=== PATIENT | female | born 1970 | race Caucasian/White ===

== ENCOUNTER 2017-01-04 13:39 | Emergency (ER) | payer BC ==
[~2017-01-04] VITALS: Wt 78.0 kg
[2017-01-04] MEDS ORDERED: SOD CHLORIDE 0.9% 1,000 ML IV STA (14:06)
[2017-01-04 14:50] LABS: BASOPHILS % 0.5 % (0.0-2.0); EOSINOPHILS # 0.1 10^3/ul (0.0-0.5); EOSINOPHILS % 0.6 % (0.0-7.0); HEMATOCRIT 38.9 % (37.0-47.0); HEMOGLOBIN 12.5 g/dl (12.0-16.0); LYMPHOCYTES # 2.2 10^3/ul (0.8-2.9); LYMPHOCYTES % 27.6 % (15.0-51.0); MEAN CORPUSCULAR HEMOGLOBIN 29.1 pg (29.0-33.0); MEAN CORPUSCULAR HGB CONC 32.1 g/dl (32.0-37.0); MEAN CORPUSCULAR VOLUME 90.7 fl (82.0-101.0); MEAN PLATELET VOLUME 9.7 fl (7.4-10.4); MONOCYTE # 0.7 10^3/ul (0.3-0.9); MONOCYTES % 8.3 % (0.0-11.0); NEUTROPHIL # 5.1 10^3/ul (1.6-7.5); NEUTROPHILS % 62.8 % (39.0-77.0); PLATELET COUNT 382 10^3/UL (140-415); RED BLOOD COUNT 4.29 10^6/ul (4.20-5.40); RED CELL DISTRIBUTION WIDTH 13.8 % (11.5-14.5); WHITE BLOOD COUNT 8.1 10^3/ul (4.8-10.8)
--- NOTE | 2017-01-04 15:01 | RADRPT ---
PROCEDURE: XR Chest. CLINICAL INDICATION: Patient experiencing Syncope. TECHNIQUE: Single frontal view of the chest was obtained COMPARISON: None FINDINGS: The heart and mediastinum are within normal limits. The lungs are clear. There is no pleural effusion or pneumothorax. The osseous structures are unremarkable. IMPRESSION: 1. No acute cardiopulmonary disease. RPTAT:AAJJ Lambert Escoto Physician Date Time Electronically viewed and signed by Lambert Escoto Physician on 01/04/2017 15:01 QL/
[2017-01-04 15:06] LABS: INR 1.04; PROTIME 13.6 Sec (12.2-14.2); PT RATIO 1.1
[2017-01-04 15:07] LABS: PARTIAL THROMBOPLASTIN TIME 28.1 Sec (25.0-35.0)
[2017-01-04 15:09] LABS: ANION GAP 13 (8-16); BLOOD UREA NITROGEN 15 mg/dl (7-20); CALCIUM 9.5 mg/dl (8.4-10.2); CARBON DIOXIDE 29 mmol/L (21-31); CHLORIDE 102 mmol/L (97-110); CREATININE 0.86 mg/dl (0.44-1.00); GLUCOSE 113 mg/dl (70-220); POTASSIUM 3.7 mmol/L (3.5-5.1); SODIUM 140 mmol/L (135-144)
[2017-01-04 15:22] LABS: TROPONIN-I < 0.012 ng/ml (0.00-0.12)
[2017-01-04] MEDS ORDERED: IOHEXOL 100 ML ONE (15:53)
[2017-01-04] MEDS ORDERED: SOD CHLORIDE 0.9% 100 ML ONE (15:53)
--- NOTE | 2017-01-04 16:08 | RADRPT ---
PROCEDURE: CT Chest Angiogram with contrast. CLINICAL INDICATION: Shortness of breath TECHNIQUE: CT scan of the chest with contrast was performed on a multidetector high-resolution CT scanner. The patient was scanned following the uncomplicated intravenous administration of 100 cc o f Isovue 300 contrast. Coronal and sagittal reformatted images were obtained from the axial source images. Additional 3D volumetric renderings were created. Images were reviewed on a [facility] PACS workstation. The total exam CTDI equals 42/19mGy and the total exam DLP equals 675mGy-cm. One or more of the following dose reduction techniques were used: Automated exposure control, Adjustmen t of the mA and/or kV according to patient size, and/or use of iterative reconstruction technique. D ICOM images are available. COMPARISON: Correlation chest x-ray earlier today. FINDINGS: Technically adequate exam for the evaluation of the pulmonary arteries to the segmental level. No in traluminal filling defects are seen. Right middle lobe and lingula scarring. No acute consolidation or pulmonary mass identified. No mediastinal or hilar lymphadenopathy. No pleural or pericardial effusion. The visualized upper abdomen is grossly unremarkable. Mild degenerative changes to the thoracic spine are seen. IMPRESSION: No evidence of pulmonary embolus. RPTAT: AA .Anoop Hopkins MD, Date Time Electronically viewed and signed by .Anoop Hopkins MD, MD on 01/04/2017 16:07 .T/
--- NOTE | 2017-01-04 16:50 | ERD ---
ER Documentation Chief Complaint Chief Complaint NEAR SYNCOPE WHILE VISITING A FRIEND. CODE GREEN, NO TRAUMA NO NEURO DEF HPI This is a 46-year-old female was a code green. The patient was upstairs visiting a friend when she suddenly became slightly short of breath with pale and diaphoretic. Patient was dizzy and thought she is going to pass out so she went to the nurses station. There they checked her blood pressure and it was 80 /61. The patient was given some apple juice. After the application was given she felt much better and her symptoms resolved. Her fingerstick at that time was 94. She thinks this was done after the juice was given. The patient states she is under a lot of stress because her dog is in critical care at the [employer] office right now. She says she has no shortness of breath now no chest pain. The patient states that she has protein S deficiency. The patient states she was on an airplane yesterday for 3 hours but does not have any leg swelling or pain or tenderness. She says she is asymptomatic now. Patient says she had a very light breakfast today, but again, she has been very stressed out about her dog ROS All systems reviewed and are negative except as per history of present illness. PMhx/Soc Hx Miscellaneous Medical Probl: Yes (DEPRESSION) Hx Alcohol Use: Yes (OCCASIONAL ) Hx Substance Use: No Hx Tobacco Use: No Smoking Status: Never smoker FmHx Family History: No coronary disease Physical Exam Vitals Vital Signs Date Time Temp Pulse Resp B/P Pulse Ox O2 Delivery O2 Flow Rate FiO2 01/04/17 15:24 98.6 75 20 119/85 98 Room Air 01/04/17 13:48 97.9 78 21 108/68 98 Physical Exam Const: Well-developed, well-nourished Head: Atraumatic, normocephalic Eyes: Normal Conjunctiva, PERRLA, EOMI, normal sclera, no nystagmus ENT: Normal External Ears, Nose and Mouth, moist mucus membranes. Neck: Full range of motion. No meningismus, no lymphadenopathy. Resp: Clear to auscultation bilaterally, no wheezing, rhonchi, rales Cardio: Regular rate and rhythm, no murmurs, S1 S2 present Abd: Soft, non tender x 4, non distended. Normal bowel sounds, no guarding or rebound, no pulsitile abdominal masses or bruits Skin: No petechiae or rashes, no ecchymosis , no maculopapular rash Back: No midline or flank tenderness Ext: No cyanosis, or edema, FROM x 4, normal inspection, neurovascularly intact x 4 Neur: Awake and alert, STR 5/5 x 4, sensation intact x 4, no focal findings, cerebellum intact Psych: Normal Mood and Affect Result Diagram: 01/04/17 1435 01/04/17 1435 Results 24 hrs Laboratory Tests Test 01/04/17 14:35 White Blood Count 8.110^3/ul Red Blood Count 4.2910^6/ul Hemoglobin 12.5g/dl Hematocrit 38.9% Mean Corpuscular Volume 90.7fl Mean Corpuscular Hemoglobin 29.1pg Mean Corpuscular Hemoglobin Concent 32.1g/dl Red Cell Distribution Width 13.8% Platelet Count 34696^3/UL Mean Platelet Volume 9.7fl Neutrophils % 62.8% Lymphocytes % 27.6% Monocytes % 8.3% Eosinophils % 0.6% Basophils % 0.5% Nucleated Red Blood Cells % 0.0/100WBC Neutrophils # 5.110^3/ul Lymphocytes # 2.210^3/ul Monocytes # 0.710^3/ul Eosinophils # 0.110^3/ul Basophils # 0.010^3/ul Nucleated Red Blood Cells # 0.010^3/ul Prothrombin Time 13.6Sec Prothrombin Time Ratio 1.1 INR International Normalized Ratio 1.04 Activated Partial Thromboplast Time 28.1Sec Sodium Level 140mmol/L Potassium Level 3.7mmol/L Chloride Level 102mmol/L Carbon Dioxide Level 29mmol/L Anion Gap 13 Blood Urea Nitrogen 15mg/dl Creatinine 0.86mg/dl Glucose Level 113mg/dl Calcium Level 9.5mg/dl Troponin I < 0.012ng/ml Current Medications Medications (Trade) Dose Ordered Sig/Cliff Route PRN Reason Start Time Stop Time Status Last Admin Dose Admin Sodium Chloride (NS) 1,000 ml @ 1,000 mls/hr Q1H STAT IV 01/04/17 14:06 01/04/17 15:05 DC IV Flush 10 ml 10 ml STK-MED ONCE .ROUTE 01/04/17 15:53 11/29/17 15:54 DC Sodium Chloride 100 ml @ ud STK-MED ONCE .ROUTE 01/04/17 15:53 01/04/17 15:54 DC Iohexol (Omnipaque) 100 ml @ ud STK-MED ONCE .ROUTE 01/04/17 15:53 01/04/17 15:54 DC Procedures/MDM PROCEDURE: XR Chest. CLINICAL INDICATION: Patient experiencing Syncope. TECHNIQUE: Single frontal view of the chest was obtained COMPARISON: None FINDINGS: The heart and mediastinum are within normal limits. The lungs are clear. There is no pleural effusion or pneumothorax. The osseous structures are unremarkable. IMPRESSION: 1. No acute cardiopulmonary disease. RPTAT:AAJJ Lambert Escoto Physician Date Time Electronically viewed and signed by Lambert Escoto Physician on 01/04/2017 15:01 QL/ CC: LYNNETTE FLORES DO PROCEDURE: CT Chest Angiogram with contrast. CLINICAL INDICATION: Shortness of breath TECHNIQUE: CT scan of the chest with contrast was performed on a multidetector high-resolution CT scanner. The patient was scanned following the uncomplicated intravenous administration of 100 cc of Isovue 300 contrast. Coronal and sagittal reformatted images were obtained from the axial source images. Additional 3D volumetric renderings were created. Images were reviewed on a high-resolution PACS workstation. The total exam CTDI equals 42/ 19mGy and the total exam DLP equals 675mGy-cm. One or more of the following dose reduction techniques were used: Automated exposure control, Adjustment of the mA and/or kV according to patient size, and/or use of iterative reconstruction technique. DICOM images are available. COMPARISON: Correlation chest x-ray earlier today. FINDINGS: Technically adequate exam for the evaluation of the pulmonary arteries to the segmental level. No intraluminal filling defects are seen. Right middle lobe and lingula scarring. No acute consolidation or pulmonary mass identified. No mediastinal or hilar lymphadenopathy. No pleural or pericardial effusion. The visualized upper abdomen is grossly unremarkable. Mild degenerative changes to the thoracic spine are seen. IMPRESSION: No evidence of pulmonary embolus. RPTAT: AA .Anoop Hopkins MD, MD Date Time Electronically viewed and signed by .Anoop Hopkins MD, on 01/04/2017 16:07 .T/ CC: LYNNETTE FLORES DO EKG: Rate/Rhythm: Normal sinus rhythm with sinus arrhythmia QRS, ST, QT: NORMAL NV, QRS, QT] Impression: NORMAL EKG Patient had a near syncopal episode probably due to hypoglycemia. The patient has been very stressed out today which can cause an increase in cortisol which can result in a hyper or hypoglycemic state. Patient was better after being given apple juice. No evidence of pulmonary embolism on her CAT scan. Chest x-ray is negative Troponin is negative and EKG is unremarkable. Gave her warning signs to return will discharge with follow-up Departure Diagnosis: Primary Impression: Near syncope Condition: Stable Patient Instructions: Near Syncope, Unknown LYNNETTE FLORES DO Jan 04, 2017 16:50
[2017-01-04 16:55] VITALS: BP 112/72; PULSE 77; RESP 18; TEMP 98.1
== END 2017-01-04 16:58 | disposition home or self-care (01) ==
LOC: E/R 13:39
DX: R55 Syncope and collapse (principal)
CPT/HCPCS: 36415; 71010; 71275; 80048; 84484; 85025; 85610; 85730; 93005; 99285; J7030; Q9967